=== PATIENT | male | born 2000 | race Caucasian/White ===

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

== ENCOUNTER 2020-04-25 11:56 | Emergency (ER) | payer MEDICAID ==
[~2020-04-25] VITALS: Ht 177.8 cm; Wt 74.3 kg
[2020-04-25 12:03] VITALS: BP 118/80
[2020-04-25] MEDS ORDERED: NAPR-56 PO (12:37)
[2020-04-25] MEDS ORDERED: PENI250T2 PO (12:37)
== END 2020-04-25 12:53 | disposition home or self-care (01) ==
LOC: ER 11:57
DX: K02.9 Dental caries, unspecified (principal); K08.89 Other specified disorders of teeth and supporting structures; R51.9 Headache, unspecified; R50.9 Fever, unspecified; Z79.2 Long term (current) use of antibiotics; Z79.899 Other long term (current) drug therapy
CPT/HCPCS: 99283

== ENCOUNTER 2020-06-12 09:23 | Emergency (ER) | payer MEDICAID ==
[~2020-06-12] VITALS: Ht 160 cm; Wt 70.0 kg
[2020-06-12 09:34] VITALS: BP 121/91
[2020-06-12] MEDS ORDERED: NAPR-56 PO (09:52)
[2020-06-12] MEDS ORDERED: PENI250T2 PO (09:52)
== END 2020-06-12 10:03 | disposition home or self-care (01) ==
LOC: ER 09:24
DX: K02.9 Dental caries, unspecified (principal); Z79.2 Long term (current) use of antibiotics; Z79.899 Other long term (current) drug therapy
CPT/HCPCS: 99283

== ENCOUNTER 2020-12-17 13:39 | Emergency (ER) | payer MEDICAID ==
[~2020-12-17] VITALS: Ht 177.8 cm; Wt 78.0 kg
[2020-12-17 13:56] VITALS: BP 117/86
[2020-12-17] MEDS ORDERED: AMOX500C2 PO (14:05)
[2020-12-17] MEDS ORDERED: NEOM10DR45 RIGHT EAR (14:05)
== END 2020-12-17 14:46 | disposition home or self-care (01) ==
LOC: ER 13:39
DX: H66.91 Otitis media, unspecified, right ear (principal); Z79.899 Other long term (current) drug therapy
CPT/HCPCS: 99283

== ENCOUNTER 2024-06-29 21:17 | Emergency (ER) | payer MEDICAID ==
[~2024-06-29] VITALS: Ht 175.3 cm; Wt 80.0 kg
[~2024-06-29 21:17] MED LIST changes: +ONDA-243 PO; -ONDA4TAB12 PO
[2024-06-29 21:46] VITALS: BP 135/77; PULSE 87; RESP 18; TEMP 98.4; O2SAT 99
== END 2024-06-30 00:16 | disposition home or self-care (01) ==
LOC: ER 21:18
DX: M25.561 Pain in right knee (principal)
CPT/HCPCS: 29505; 73562; 99283